=== PATIENT | male | born 2005 | race Caucasian/White ===

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

== ENCOUNTER 2023-10-16 11:06 | Emergency (ER) | payer MEDICAID, OTHER ==
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
[2023-10-16] MEDS ORDERED: INSULIN REGULAR IN 0.9 % NS 100 UNIT/100 ML BAG IV STA (11:49)
[2023-10-16 11:59] LABS: BASOPHILS # (AUTO) 0.1 10^3/uL (0.0-0.1); BASOPHILS % (AUTO) 0.7 %; HCT - HEMATOCRIT 50.6 % (42.0-52.0); HGB - HEMOGLOBIN 17.3 g/dL (14.0-18.0); LYMPHOCYTES # (AUTO) 0.9 10^3/uL (1.5-3.5); LYMPHOCYTES % (AUTO) 13.6 %; MEAN CORPUSCULAR HEMOGLOBIN 29.9 pg (27.0-31.0); MEAN CORPUSCULAR HGB CONC 34.2 g/dL (32.0-36.0); MEAN CORPUSCULAR VOLUME 87.4 fL (80.0-94.0); MEAN PLATELET VOLUME 10.2 fL (7.4-11.4); MONOCYTES # (AUTO) 0.3 10^3/uL (0.0-1.0); MONOCYTES % (AUTO) 4.3 %; NEUTROPHILS # (AUTO) 5.4 10^3/uL (1.5-6.6); NEUTROPHILS % (AUTO) 80.8 %; PLT - PLATELET COUNT 373 10^3/uL (130-450); RED BLOOD COUNT 5.79 10^6/uL (4.70-6.10); RED CELL DISTRIBUTION WIDTH 12.3 % (12.0-15.0); VBG HCO3 15.6 mmol/L (23-28); VBG PCO2 37.3 mmHg (41-51); VBG PH 7.239 (7.31-7.41); VBG PO2 30.2 mmHg (25-47); VBG TOTAL CO2 16.7 mmol/L (24-29); WHITE BLOOD COUNT 6.7 x10^3/uL (4.8-10.8)
[2023-10-16 12:00] LABS: VBG BASE EXCESS -10.9 mmol/L (-2 - +2); VBG OXYGEN SATURATION 58.9 % (60-80)
[2023-10-16] MEDS: SODIUM CHLORIDE 0.9% 1,000 ML IV SCH (12:01)
[2023-10-16 12:02] LABS: BILIRUBIN,URINE MODERATE (NEGATIVE); GLUCOSE, URINE (UA) 500 mg/dL (NEGATIVE); KETONES,URINE (UA) >=80 mg/dL (NEGATIVE); LEUKOCYTE ESTERASE, URINE NEGATIVE (NEGATIVE); NITRITE,URINE NEGATIVE (NEGATIVE); OCCULT BLOOD,URINE NEGATIVE (NEGATIVE); PROTEIN,URINE 30 mg/dL (NEGATIVE); UROBILINOGEN,URINE 0.2 (NORMAL) E.U./dL (NORMAL)
[2023-10-16 12:03] LABS: CLARITY,URINE CLEAR (CLEAR)
[2023-10-16 12:08] LABS: KETONES, SERUM (ACETEST) SMALL (NEGATIVE)
[2023-10-16 12:16] LABS: LIPASE 11 U/L (11-82)
[2023-10-16 12:17] LABS: BACTERIA,URINE Rare /HPF (None Seen); CASTS, URINE 3-5 Granular Casts /LPF; RBC,URINE None Seen /HPF (0-5); SQUAMOUS EPITHELIAL CELL,UR NONE SEEN (<= Few); WBC,URINE 0-3 /HPF (0-3)
[2023-10-16 12:20] LABS: ALBUMIN 5.5 g/dL (3.2-5.5); ALBUMIN/GLOBULIN RATIO 1.7 (1.0-2.2); ALKALINE PHOSPHATASE 77 IU/L (42-121); ALT ALANINE AMINOTRANSFERASE 28 IU/L (10-60); AST ASPARTATE AMINOTRANSFERASE 23 IU/L (10-42); BILIRUBIN,TOTAL 0.7 mg/dL (0.2-1.0); BUN - BLOOD UREA NITROGEN 16 mg/dL (6-20); CALCIUM 10.1 mg/dL (8.5-10.3); CARBON DIOXIDE - CO2 16 mmol/L (21-32); CHLORIDE 97 mmol/L (101-111); GFR - MDRD 95 (>89); GLUCOSE 209 mg/dL (74-104); POTASSIUM 3.9 mmol/L (3.5-4.5); SODIUM 134 mmol/L (135-145); TOTAL PROTEIN 8.8 g/dL (6.4-8.9)
[2023-10-16] MEDS: SODIUM CHLORIDE 0.9% 1,000 ML IV STA (13:34)
[2023-10-16 13:43] VITALS: O2SAT 99
[2023-10-16 14:16] LABS: CALCIUM 8.2 mg/dL (8.5-10.3); CREATININE 0.8 mg/dL (0.6-1.3); POTASSIUM 4.8 mmol/L (3.5-4.5)
[2023-10-16 14:39] LABS: VBG BASE EXCESS -8.6 mmol/L (-2 - +2); VBG HCO3 18.1 mmol/L (23-28); VBG PCO2 41.6 mmHg (41-51); VBG PH 7.256 (7.31-7.41); VBG PO2 20.3 mmHg (25-47); VBG TOTAL CO2 19.4 mmol/L (24-29)
[2023-10-16 14:40] LABS: VBG OXYGEN SATURATION 36.6 % (60-80)
[2023-10-16 15:28] VITALS: BP 123/73
== END 2023-10-16 15:07 | disposition home or self-care (01) ==
LOC: ED 11:06
DX: E10.10 Type 1 diabetes mellitus with ketoacidosis without coma (principal); E87.5 Hyperkalemia
CPT/HCPCS: 36415; 80048; 80053; 81001; 81003; 82009; 82803; 83605; 83690; 85025; 87086; 93005; 96360; 96361; 99285

== ENCOUNTER 2024-06-20 10:42 | Observation (INO) ==
[2024-06-20 11:13] LABS: BASOPHILS # (AUTO) 0.1 10^3/uL (0.0-0.1); EOSINOPHILS % (AUTO) 0.2 %; HCT - HEMATOCRIT 53.2 % (42.0-52.0); HGB - HEMOGLOBIN 17.6 g/dL (14.0-18.0); LYMPHOCYTES # (AUTO) 1.2 10^3/uL (1.5-3.5); LYMPHOCYTES % (AUTO) 23.3 %; MEAN CORPUSCULAR HEMOGLOBIN 29.2 pg (27.0-31.0); MEAN CORPUSCULAR HGB CONC 33.1 g/dL (32.0-36.0); MEAN CORPUSCULAR VOLUME 88.4 fL (80.0-94.0); MEAN PLATELET VOLUME 9.7 fL (7.4-11.4); MONOCYTES # (AUTO) 0.2 10^3/uL (0.0-1.0); MONOCYTES % (AUTO) 4.9 %; NEUTROPHILS # (AUTO) 3.4 10^3/uL (1.5-6.6); NEUTROPHILS % (AUTO) 69.8 %; PLT - PLATELET COUNT 436 10^3/uL (130-450); RED BLOOD COUNT 6.02 10^6/uL (4.70-6.10); RED CELL DISTRIBUTION WIDTH 11.3 % (12.0-15.0); WHITE BLOOD COUNT 4.9 x10^3/uL (4.8-10.8)
[2024-06-20 11:17] LABS: KETONES, SERUM (ACETEST) SMALL (NEGATIVE)
[2024-06-20 11:27] LABS: VBG PCO2 24.7 mmHg (41-51); VBG PO2 47.7 mmHg (25-47); VBG TOTAL CO2 10.8 mmol/L (24-29)
--- NOTE | 2024-06-20 11:28 | ED Physician Documentation ---
History of Present Illness Stated complaint Stated Complaint: N/V,HIGH BS,DIZZINESS Chief complaint Chief Complaint: Abd Pain History obtained from History obtained from: Patient History of Present Illness Timing: Prior to arrival Additonal information Additional information: Patient is a 18-year-old male presenting to the emergency department type I diabetic on insulin presents after nausea vomiting dizziness symptoms while he was at work today. Patient notes his blood sugars have been high since last evening and this morning. He notes he had vomited about 3 times this morning. He feels he is in DKA. He has only been in DKA 1 other time and that was last fall with the diabetic history of 10 years. He notes he has been compliant with his insulin he has not missed any doses no alcohol or drug use recently. He notes he ate some cake and fries last night but was unable to eat anything this morning. Feels lightheaded and nauseous with generalized abdominal pain. Describes as a stabbing poking pain. No chest pain no shortness of breath he did 25 units of insulin prior to coming in. Meds/Allgy Home Medications Ambulatory Orders Medication Instructions Recorded Confirmed ondansetron 4 mg disintegrating 4 mg translingual Q6H PRN Nausea / 10/16/23 tablet Vomiting #10 tabs Allergies Allergies Allergy/AdvReac Type Severity Reaction Status Date / Time No Known Drug Allergies Allergy Verified 06/20/24 10:52 PFSH Active Problems All Active Problems (Updated 06/20/24 @ 12:21 by Siri Duckworth PA-C) Acidosis due to type 1 diabetes mellitus (Acute) Acute hyperglycemia (Acute) Nausea & vomiting (Acute) DKA, type 1 (Acute) Medical History Medical History (Updated 06/20/24 @ 12:21 by Siri Duckworth PA-C) Diabetes Surgical History Surgical History (Updated 02/25/24 @ 12:14 by Danielle Rico RN, BSN) No pertinent past surgical history Social History Social History Smoking Status: Never smoker Relationship: Do you feel safe in your home environment?: Yes Suffered physical, verbal, emotional, or financial abuse?: No History of Abuse: No POLST Patient has POLST: No Exam Constitutional normal general appearance Patient awake alert no acute distress. HENMT normocephalic, head/scalp atraumatic and hearing grossly normal bilaterally Mild dry mucous membranes on arrial Eyes PERRL, EOMs intact bilaterally, conjunctivae normal and no scleral icterus Neck/C-Spine visual inspection normal Lymph no lymphadenopathy noted Chest inspection of chest normal Respiratory breath sounds equal bilaterally, normal respiratory effort and clear to auscultation bilaterally Cardiovascular normal heart rate noted Gastrointestinal abdomen normal to inspection, abdomen soft to palpation and nontender to palpation Generalized abdominal tenderness with soft to touch. Genitourinary no CVA tenderness Extremities normal to inspection Moving all extremities without difficulty Skin skin color normal Results Vitals Vitals: Vital Signs - 24 hr 06/20/24 10:46 06/20/24 10:56 Pulse Rate 111 H Respiratory Rate 24 Blood Pressure 154/102 H O2 Saturation 99 Pain Intensity 7 0 Oxygen O2 Source Room air EKG (time done) 1208: EKG releavant findings:: EKG personally interpreted by author of this note. Relevant findings are: Rate: Rate (enter#) (102) Rhythm: NSR [place]: Normal Intervals: Normal MO QRS: QRS normal Ischemia: Normal ST segments Computer interpretation: Agree with computer Labs Labs: Laboratory Tests 06/20/24 06/20/24 06/20/24 10:49 10:55 11:14 WBC 4.9 RBC 6.02 Hgb 17.6 Hct 53.2 H MCV 88.4 MCH 29.2 MCHC 33.1 RDW 11.3 L Plt Count 436 MPV 9.7 Neut # (Auto) 3.4 Lymph # (Auto) 1.2 L [place] # (Auto) 0.2 Eos # (Auto) 0.0 Baso # (Auto) 0.1 Absolute Nucleated RBC 0.00 Nucleated RBC % 0.0 VBG pH 7.210 L VBG pCO2 24.7 L VBG pO2 47.7 H VBG HCO3 10.0 L VBG Total CO2 10.8 L VBG O2 Saturation 74.0 VBG Base Excess -18.0 L Sodium 133 L Potassium 4.5 Chloride 97 L Carbon Dioxide 11 L* Anion Gap 25.0 H BUN 16 Creatinine 1.1 Estimated GFR (MDRD) 85 L Glucose 405 H POC Whole Bld Glucose 438 Calcium 10.0 Total Bilirubin 0.4 AST 41 ALT 42 Alkaline Phosphatase 88 Total Protein 8.8 Albumin 5.3 Globulin 3.5 Albumin/Globulin Ratio 1.5 Lipase 17 Serum Ketones SMALL H PD Medical Decision Making ED course Complexity details: reviewed old records and reviewed results ED course: Patient is a 18-year-old male presenting with nausea abdominal cramping vomiting this morning. His blood sugar was 563 this morning while he was at work. He notes he has been having multiple episodes of vomiting this morning dizziness and lightheadedness. He has concerns for DKA as he had similar symptoms last fall and was found to be in DKA. Blood sugar on arrival was 438. Patient started on IV fluids he did 10 units of short acting insulin prior to coming in.Patient was started on normal saline bolus on arrival. Patient's labs consistent with DKA. Patient isHyperglycemic at 405 anion gap of 25 no signs of hypokalemia mild hyponatremia at 133 secondary to DKA. Patient has moderate amount of ketones in the blood. UA pending at this time however no acute cause for patient's sudden onset of DKA said his blood sugars were 100s to 200s yesterday he was feeling nauseous and vomiting today he had cake and fries yesterday that could explain his symptoms but he did do his insulin dose this morning and did 25 units prior to coming in. He is usually well-controlled with his diabetes. Pending urine drug screen pending respiratory swab which could explain some of the symptoms. Discussed case with on-call nurse practitioner Dimas for admission to ICU patient accepted and will be monitored in ICU unit. Discharge Plan Discharge Patient Disposition: [facility] DC/Xfer Condition: Stable Clinical Impression: DKA, type 1, Nausea & vomiting, Acute hyperglycemia, Acidosis due to type 1 d iabetes mellitus Prescriptions: No Action ondansetron 4 MG tablet,disintegrating 4 mg translingual Q6H PRN (Reason: Nausea / Vomiting) Qty: 10 0RF Print Language: [place]ican
[2024-06-20] MEDS: SODIUM CHLORIDE 0.9% 1,000 ML IV STA ×2 (11:37→13:10)
[2024-06-20 11:44] LABS: LIPASE 17 U/L (11-82)
[2024-06-20 11:46] LABS: ALBUMIN 5.3 g/dL (3.2-5.5); ALBUMIN/GLOBULIN RATIO 1.5 (1.0-2.2); ALKALINE PHOSPHATASE 88 IU/L (42-121); ALT ALANINE AMINOTRANSFERASE 42 IU/L (10-60); AST ASPARTATE AMINOTRANSFERASE 41 IU/L (10-42); BILIRUBIN,TOTAL 0.4 mg/dL (0.2-1.0); BUN - BLOOD UREA NITROGEN 16 mg/dL (6-20); CARBON DIOXIDE - CO2 11 mmol/L (21-32); CHLORIDE 97 mmol/L (101-111); CREATININE 1.1 mg/dL (0.6-1.3); GFR - MDRD 85 (>89); GLUCOSE 405 mg/dL (74-104); POTASSIUM 4.5 mmol/L (3.5-4.5); SODIUM 133 mmol/L (135-145); TOTAL PROTEIN 8.8 g/dL (6.4-8.9)
[2024-06-20] MEDS: ONDANSETRON 4 MG/2 ML VIAL IVP STA (11:54)
[2024-06-20 12:32] LABS: VBG BASE EXCESS -15.8 mmol/L (-2 - +2); VBG PH 7.232 (7.31-7.41); VBG PO2 51.2 mmHg (25-47); VBG TOTAL CO2 12.8 mmol/L (24-29)
[2024-06-20 12:36] LABS: MAGNESIUM 2.2 mg/dL (1.7-2.3)
[2024-06-20 12:41] LABS: BILIRUBIN,URINE SMALL (NEGATIVE); GLUCOSE, URINE (UA) 500 mg/dL (NEGATIVE); KETONES,URINE (UA) >=80 mg/dL (NEGATIVE); LEUKOCYTE ESTERASE, URINE NEGATIVE (NEGATIVE); NITRITE,URINE NEGATIVE (NEGATIVE); OCCULT BLOOD,URINE TRACE-INTA (NEGATIVE); PH,URINE 5.5 PH (5.0-7.5); PROTEIN,URINE 100 mg/dL (NEGATIVE); UROBILINOGEN,URINE 0.2 (NORMAL) E.U./dL (NORMAL)
[2024-06-20 12:44] LABS: CLARITY,URINE CLEAR (CLEAR)
[2024-06-20 12:57] LABS: CREATININE 0.9 mg/dL (0.6-1.3)
[2024-06-20] MEDS ORDERED: SODIUM CHLORIDE 0.45% 1,000 ML IV SCH (13:00)
[2024-06-20] MEDS ORDERED: POTASSIUM CHLOR 10 MEQ/100 ML 10 MEQ/100 ML BAG IV SCH (13:00)
[2024-06-20 13:01] LABS: B. PARAPERTUSSIS- RESP PCR PAN NOT DETECTED; B. PERTUSSIS- RESP PCR PANEL NOT DETECTED; C. PNEUMONIAE- RESP PCR PANEL NOT DETECTED; CORONAVIRUS 229E-RESP PCR NOT DETECTED; CORONAVIRUS HKU1-RESP PCR NOT DETECTED; CORONAVIRUS NL63-RESP PCR NOT DETECTED; CORONAVIRUS OC43-RESP PCR NOT DETECTED; HUMAN METAPNEUMOVIRUS NOT DETECTED; INFLUENZA A- RESP PCR PANEL NOT DETECTED; INFLUENZA B - RESP PCR PANEL NOT DETECTED; M. PNEUMONIAE- RESP PCR PANEL NOT DETECTED; PARAINFLUENZA VIRUS 1 NOT DETECTED; PARAINFLUENZA VIRUS 2 NOT DETECTED; PARAINFLUENZA VIRUS 4 NOT DETECTED; RHINOVIRUS/ENTEROVIRUS NOT DETECTED; RSV- RESP PCR PANEL NOT DETECTED; SARS-CoV-2 -RESP PCR PANEL NOT DETECTED
[2024-06-20 13:03] LABS: BACTERIA,URINE None Seen /HPF (None Seen); RBC,URINE 0-5 /HPF (0-5); SQUAMOUS EPITHELIAL CELL,UR NONE SEEN (<= Few)
[2024-06-20 13:04] LABS: AMPHETAMINE SCREEN,URINE NEGATIVE (NEGATIVE); BARBITURATE SCREEN,UR NEGATIVE (NEGATIVE); BENZODIAZEPINES SCREEN, URINE NEGATIVE (NEGATIVE); BUPRENORPHINE SCREEN, URINE NEGATIVE (NEGATIVE); COCAINE SCREEN URINE NEGATIVE (NEGATIVE); METHADONE SCREEN, URINE NEGATIVE (NEGATIVE); METHAMPHETAMINES SCREEN, URINE NEGATIVE (NEGATIVE); OPIATE SCREEN, URINE NEGATIVE (NEGATIVE); OXYCODONE SCREEN, URINE NEGATIVE (NEGATIVE); THC CANNABINOID SCREEN, URINE NEGATIVE (NEGATIVE); TRICYCLIC ANTIDEPRESSANT,URINE NEGATIVE (NEGATIVE)
[2024-06-20] MEDS: DEXTROSE 5%-0.9% NACL 1,000 ML IV STA (13:09)
[2024-06-20] MEDS: INSULIN REGULAR IN 0.9 % NS 100 UNIT/100 ML BAG IV SCH (13:10)
[2024-06-20] MEDS: POTASSIUM CHLOR 10 MEQ/100 ML 10 MEQ/100 ML BAG IV SCH (13:10)
[2024-06-20 13:27] LABS: MAGNESIUM 2.1 mg/dL (1.7-2.3)
[2024-06-20 13:35] LABS: CALCIUM 8.8 mg/dL (8.5-10.3); CREATININE 0.8 mg/dL (0.6-1.3); POTASSIUM 4.1 mmol/L (3.5-4.5)
[2024-06-20] MEDS ORDERED: ACETAMINOPHEN 325 MG TABLET PO PRN (13:47)
[2024-06-20] MEDS ORDERED: ONDANSETRON 4 MG/2 ML VIAL IVP PRN (13:47)
[2024-06-20] MEDS ORDERED: ONDANSETRON ODT 4 MG TABLET TL PRN (13:47)
[2024-06-20] MEDS ORDERED: SODIUM CHLORIDE FLUSH 0.9% 10 ML SYRINGE IVP PRN (13:47)
[2024-06-20] MEDS: D5.45NS W/20 MEQ KCL 1,000 ML IV SCH (13:59)
--- NOTE | 2024-06-20 14:15 | PHARMACY PROGRESS NOTE ---
Best Possible Medication History Admit Date and Time: 06/20/24 [id number] Home Medications Medication Instructions Recorded Confirmed Type aripiprazole 5 mg tablet 5 mg PO DAILY 06/20/24 06/20/24 History citalopram 10 mg tablet 10 mg PO DAILY 06/20/24 06/20/24 History insulin aspart U-100 100 unit/mL 20 - 22 unit subcut TIDWM 06/20/24 06/20/24 History (3 mL) subcutaneous pen (Novolog FlexPen U-100 Insulin aspart) insulin glargine 100 unit/mL (3 36 unit subcut QPM 06/20/24 06/20/24 History mL) subcutaneous pen (Basaglar KwikPen U-100 Insulin) lamotrigine 5 mg chewable 10 mg PO DAILY 06/20/24 06/20/24 History dispersible tablet Processed by: Pharmacy Medications reviewed in ED?: No Medication History completed: Yes Patient Interview: Completed Secondary Source(s): Pharmacy records and Insurance records [facility] Statement: As the person ultimately responsible for medication therapy, providers are able to order a medication from an existing home medication list in [facility] via the "Reconcile Routine" prior to Confirmation of that medication by user support specialist. Such practice is discouraged except when the physician, in their clinical judgment, deems that a medical need exists for a medication without regard to previous use.
--- NOTE | 2024-06-20 14:44 | HISTORY & PHYSICAL EXAMINATION ---
Chief Complaint Chief Complaint Chief Complaint: High blood glucose History of Present Illness Admitted From Admitted From:: Home with parents History Obtained From History obtained from: Patient interview History of Present Illness HPI Comment/Other: 18-year-old male PMH significant for type 1 diabetes on Lantus and mealtime insulin who informs me he has skipped the past 2 nights of Lantus. This morning, his blood sugar was in the 400s, so he gave himself his a.m. insulin and came into the ER. In the ER, lab work revealed a DKA with a CO2 level of 11 and an anion gap of 25 on chemistry. UA with glucose and ketones. No infectious symptoms no recent sick contacts. UDS negative, respiratory viral panel negative. VBG 7.21/24.7/47.7/10. He was given 2 L NS by ER provider, and hospitalist was contacted for admission for DKA Meds/Allgy Home Medications Ambulatory Orders Medication Instructions Recorded Confirmed aripiprazole 5 mg tablet 5 mg PO DAILY 06/20/24 06/20/24 citalopram 10 mg tablet 10 mg PO DAILY 06/20/24 06/20/24 insulin aspart U-100 100 unit/mL 20 - 22 unit subcut TIDWM 06/20/24 06/20/24 (3 mL) subcutaneous pen (Novolog FlexPen U-100 Insulin aspart) insulin glargine 100 unit/mL (3 36 unit subcut QPM 06/20/24 06/20/24 mL) subcutaneous pen (Basaglar KwikPen U-100 Insulin) lamotrigine 5 mg chewable 10 mg PO DAILY 06/20/24 06/20/24 dispersible tablet Allergies Allergies Allergy/AdvReac Type Severity Reaction Status Date / Time No Known Drug Allergies Allergy Verified 06/20/24 10:52 PFSH Active Problems All Active Problems Acidosis due to type 1 diabetes mellitus (Acute) Acute hyperglycemia (Acute) Nausea & vomiting (Acute) DKA, type 1 (Acute) Medical History Medical History Diabetes Surgical History Surgical History No pertinent past surgical history Social History Social History Smoking Status: Never smoker Second hand tobacco smoke exposure: No Do you dip or chew tobacco?: No Do you vape?: No Relationship: Level: Independent Do you feel safe in your home environment?: Yes Suffered physical, verbal, emotional, or financial abuse?: No History of Abuse: No Substance Use: cannabis (any form) Substance Use Details: "I smoke pot about once a month" POLST Patient has POLST: No Review of Systems Status of ROS: 10 or more systems reviewed and unremarkable except as noted in history and below Constitutional Denies: Fever or Chills Cardiovascular Denies: Irregular heart rate, chest pain, palpitations or shortness of breath with exertion Respiratory Denies: Shortness of breath Gastrointestinal Denies: Abdominal pain Genitourinary Denies: Painful urination Integumentary/Breast Denies: Rash Neurological Denies: Headache Endocrine Reports: Excessive thirst Exam Constitutional normal general appearance and no apparent distress HENMT normocephalic and head/scalp atraumatic Eyes PERRL Neck/C-Spine visual inspection normal Lymph no lymphadenopathy noted Chest inspection of chest normal Respiratory breath sounds equal bilaterally Cardiovascular normal heart rate noted and regular rhythm noted Gastrointestinal abdomen normal to inspection Genitourinary bladder normal to palpation Extremities normal to inspection Neurology GCS 15 Psychiatry oriented x3 Skin skin color normal Conclusion/Plan Problem List (1) DKA, type 1: Plan: Moved to ICU for insulin drip His hyperglycemia corrected while he was in the ER, so I'm starting him on D5 half NS with 20 of K at 250 BMP every 2 hour Glucose checks every hour per ICU DKA protocol ICU electrolyte replacement protocol pH on VBG was never less than 7, so no indication for bicarb His DKA is secondary to medication noncompliance. He says that he is not out of his Lantus, so no concern for medication availability. I anticipate a rapid improvement and discharged to prior living situation Plan Placed in observation/ICU Full code His parents are his surrogate decision makers Lab Results Lab results reviewed: Yes 06/20/24 10:55 06/20/24 15:14
[2024-06-20 15:28] LABS: MAGNESIUM 1.9 mg/dL (1.7-2.3)
[2024-06-20 15:33] LABS: CALCIUM 8.7 mg/dL (8.5-10.3); CREATININE 0.7 mg/dL (0.6-1.3); POTASSIUM 4.1 mmol/L (3.5-4.5)
--- NOTE | 2024-06-20 16:05 | Discharge Summary ---
Discharge Summary Admit Date: 06/20/24 Discharge Date: 06/20/24 Discharging Provider: Dimas Andrew NP Primary Care Provider: [facility] Code Status: Attempt Resuscitation DIAGNOSES Admission Diagnoses: DKA Type 1 diabetes Discharge Diagnoses with Status of Each Condition: DKAresolved Type 1 diabeteschronic HPI History of Present Illness: 18-year-old male PMH significant for type 1 diabetes on Lantus and mealtime insulin who informs me he has skipped the past 2 nights of Lantus. This morning, his blood sugar was in the 400s, so he gave himself his a.m. insulin and came into the ER. In the ER, lab work revealed a DKA with a CO2 level of 11 and an anion gap of 25 on chemistry. UA with glucose and ketones. No infectious symptoms no recent sick contacts. UDS negative, respiratory viral panel negative. VBG 7.21/24.7/47.7/10. He was given 2 L NS by ER provider, and hospitalist was contacted for admission for DKA HOSPITAL COURSE Hospital Course: 18-year-old male PMH significant for type 1 diabetes managed on mealtime/long- acting insulin who has not taken his Lantus for the past 2 days. He says that he still has it, he just did not give it to himself. He came in to the hospital and was found to be in DKA. His hyperglycemia resolved prior to initiation of an insulin drip from his dose of mealtime insulin. He was placed on an insulin drip with D5 half NS with potassium to finish resolving his DKA. His DKA has now resolved and he has received his home dose of Lantus. He is being discharged home to follow-up with his primary care provider ALLERGIES Allergies Allergy/AdvReac Type Severity Reaction Status Date / Time No Known Drug Allergies Allergy Verified 06/20/24 10:52 MEDICATIONS Ambulatory Orders Medication Instructions Recorded Confirmed aripiprazole 5 mg tablet 5 mg PO DAILY 06/20/24 06/20/24 citalopram 10 mg tablet 10 mg PO DAILY 06/20/24 06/20/24 insulin aspart U-100 100 unit/mL 20 - 22 unit subcut TIDWM 06/20/24 06/20/24 (3 mL) subcutaneous pen (Novolog FlexPen U-100 Insulin aspart) insulin glargine 100 unit/mL (3 36 unit subcut QPM 06/20/24 06/20/24 mL) subcutaneous pen (Basaglar KwikPen U-100 Insulin) lamotrigine 5 mg chewable 10 mg PO DAILY 06/20/24 06/20/24 dispersible tablet PHYSICAL EXAM AT DISCHARGE General Appearance: positive No acute distress and Alert Eyes Bilateral: positive Normal inspection and PERRL ENT: positive ENT inspection nml Neck: positive Nml inspection Respiratory: positive Chest non-tender Cardiovascular: positive Regular rate & rhythm and No murmur Peripheral Pulses: positive 2+ Abdomen: positive Non-tender Back: positive Nml inspection Skin: positive Color nml Extremities: positive Non-tender Neurologic/Psychiatric: positive Oriented x3 LABS 06/20/24 10:55 06/20/24 18:47 FOLLOW UP Follow Up: With PCP TIME SPENT Time Spent in Discharge (Minutes): 25 Discharge Plan Discharge Patient Disposition: Home, Self Care Condition: Stable Medically Cleared Date:: 06/20/24 Prescriptions: Continued insulin aspart U-100 [Novolog FlexPen U-100 Insulin] 100 unit/mL (3 mL) insulin pen 20 - 22 unit SUBCUT TIDWM aripiprazole 5 mg tablet 5 mg PO DAILY Patient Comments: take 1 tablet by mouth once daily insulin glargine [Basaglar KwikPen U-100 Insulin] 100 unit/mL (3 mL) insulin pen 36 unit SUBCUT QPM Patient Comments: inject 34 units subcutaneously AT NIGHT citalopram 10 mg tablet 10 mg PO DAILY Patient Comments: take 1 tablet by mouth once daily lamotrigine 5 mg tablet, chewable dispersible 10 mg PO DAILY Diet: Diabetic Interventions: Discharge Last Done: 06/20/24 19:17 Discharge Checklist - Nursing Last Done: 06/20/24 19:17 Health Concerns: You were brought into the hospital because you are in DKA. This is likely because you have not had your Lantus for 2 days. You are on an insulin drip briefly, and were transitioned off of the insulin drip onto your home dose of Lantus. Please continue your diabetic regimen as before. I am making no changes to your home meds. I would encourage you to follow-up with your primary care provider and dip painter if you have one Print Language: Irish Patient Instructions: DKA Prevent Ch Stand Alone Forms: PCP List
[2024-06-20 16:13] VITALS: TEMP 97.9
[2024-06-20 17:02] LABS: CALCIUM 8.5 mg/dL (8.5-10.3); CREATININE 0.7 mg/dL (0.6-1.3); POTASSIUM 3.8 mmol/L (3.5-4.5)
[2024-06-20] MEDS: INSULIN GLARGINE-YFGN 300 UNIT/3 ML PEN SUBQ ONE (17:07)
[2024-06-20] MEDS: SODIUM CHLORIDE FLUSH 0.9% 10 ML SYRINGE IVP SCH (17:09)
[2024-06-20] MEDS: POTASSIUM CHLORIDE 20 MEQ TABLET PO ONE (18:27)
[2024-06-20 19:06] VITALS: BP 122/72; O2SAT 97
[2024-06-20 19:11] LABS: CALCIUM 8.1 mg/dL (8.5-10.3); CREATININE 0.9 mg/dL (0.6-1.3); POTASSIUM 3.8 mmol/L (3.5-4.5)
[2024-06-21] MEDS ORDERED: ENOXAPARIN 40 MG/0.4 ML SYRINGE SUBQ SCH (09:00)
== END 2024-06-20 19:23 | disposition home or self-care (01) ==
LOC: ICU 10:42 → ED 10:42 → ICU 13:34
PROVIDERS: ADMIT Nurse Practitioner Acute Care; ATTEND Nurse Practitioner Acute Care
DX: Z91.128 Patient's intentional underdosing of medication regimen for other reason; E10.10 Type 1 diabetes mellitus with ketoacidosis without coma; Y92.009 Unspecified place in unspecified non-institutional (private) residence as the place of occurrence of the external cause; T38.3X6A Underdosing of insulin and oral hypoglycemic [antidiabetic] drugs, initial encounter